=== PATIENT | female | born 1950 | race Caucasian/White ===

== ENCOUNTER 2017-01-30 05:26 | Inpatient (IN) | payer MEDICARE, OTHER ==
[2017-01-30] VITALS (12 sets, daily range): BP systolic 144–181; BP diastolic 82–98; PULSE 65–93; RESP 10–19; O2SAT 92–100
[~2017-01-30] VITALS: Ht 157.5 cm; Wt 84.4 kg
[~2017-01-30 05:26] MED LIST: CALC1TAB4 PO; FLUO40CA PO; LEVO88CA2 PO; LOVA40TA PO; Lactated Ringer's 1,000 ML IV ONE; MELO-259 PO; MULT-1018 PO; TEMA30CA4 PO; TRAM50TA2 PO; TRIA1TAB5 PO
[2017-01-30] MEDS ORDERED: Vancomycin Inj 1,000 MG in IV Premix 1 EACH IV ONE (06:00)
[2017-01-30] MEDS ORDERED: CeFAZolin Inj 2 GM in IV Premix 1 EACH IV ONE (06:00)
--- NOTE | 2017-01-30 07:03 | PCM.HPANE ---
Patient Data Surgeon Admitting Provider: Attending Provider:Len Phillips DO Primary Care Physician:Joseline Hercules PA-C Other Provider:Thuy Gabriel Anesthesia Reason for Visit Left Hip Degenerative Joint Disease LEFT HIP DEGENERATIVE JOINT DISEASE Ht/WT & BMI Height (Feet): 5 Height (Inches): 2.00 Weight (Kilograms): 84.368 Body Mass Index 34.00 Allergies Coded Allergies: No Known Allergies (Unverified , 01/26/17) Past Anesthesia History Anesthesia History: Positive for:: Anesthesia Reactions (PONV), Denies:: Malignant Hyperthermia Diabetes History Hx Diabetes?: No MRSA MRSA: No Medications Blood Thinner: Aspirin Hypertension Medication: Yes (TRIAMTERENE/HCTZ) Home Meds Incl Beta Manoj: No Reported Medications Tramadol 50 Mg [id number] Mg PO TID PRN For Pain Ref 0 01/26/17 Levothyroxine (Tirosint)88 Mcg Bxawxam78 Mcg PO DAILY 01/26/17 Multivitamin (Multi Vitamin Daily)1 Each Tablet1 Each PO DAILY 30 Days Ref 0 01/26/17 Triamterene/HCTZ 75-50 mg 1 Each Tablet0.5 Tablet PO DAILY Ref 0 01/26/17 Fluoxetine 40 Mg Jepstig31 Mg PO DAILY Ref 0 01/26/17 Ca/D3/Mag#11/Zinc/Performance Improvement Analyst/Raúl/Bor (Caltrate 600+D Plus Tablet)1 Each Tablet1 Each PO DAILY 01/26/17 Discontinued Reported Medications Temazepam (Restoril)30 Mg Dhmvzrn47 Mg PO HS PRN For Insomnia 30 Days Ref 0 01/26/17 Meloxicam 7.5 Mg Tablet0.5 Tab PO BID 30 Days Ref 0 01/26/17 Lovastatin 40 Mg Gnedik86 Mg PO HS #30 TABLET Ref 0 01/26/17 Triamterene/HCTZ-Expunged Drug, Do Not Renew! (Maxzide 75/50-Expunged Drug, Do Not Renew!)1 Tab Tablet0.5 Tab PO DAILY 11/14/12 Aspirin-Expunged Drug, Do Not Renew! 81 Mg Tab81 Mg PO DAILY 11/14/12 Lovastatin-Expunged Drug, Do Not Renew! 40 Mg Lqkiaw71 Mg PO DAILY 11/14/12 Losartan-Expunged Drug, Do Not Renew! 50 Mg Pshznx64 Mg PO DAILY #30 TAB 11/14/12 History History of ENT Problems?: Yes HEENT History: Denies:: Abnormal Airway Cataracts Difficult Intubation Dysphagia Glaucoma Hearing Problem Sinus Problem TMJ Denture Type: None Teeth Condition: Within Normal Limits Other HEENT Pertinent History: S/P TONSILLECTOMY Hx of Heart Problems?: Yes Cardiovascular History: Positive for:: Hypertension (HYPERLIPIDEMIA) Denies:: Heart Murmur Hx of Respiratory Problem?: No Respiratory History: Denies:: Use of C-PAP Machine Hx Neurologic Problems?: Yes Hx of GI Problems?: No Hx of Problems?: No Female Hx: Denies:: Currently Skin History: Positive for:: History Skin Disorders? (ONYCHOMYCOSIS S/P BASAL CELL CA) Denies:: Pressure Ulcers Hx Musculoskeletal Problems?: Yes Musculoskeletal History: Positive for:: Degenerative Joint Joint Replacement (S/P RT TOY, LT TKA) Osteoarthritis (LT HIP=CURRENT PROBLEM) Hx of Psycho/Social Problems?: Yes Psycho Social History: Positive for:: Anxiety (MILD) Hx Depression (MILD) Hx Surgeries?: Yes (TONSILLECTOMY,RT TOY, LT TKA,THYROID ABLATION) Hx Any Other Health Problems?: Yes Other History: Positive for:: Cancer (THYROID) Thyroid Disease (S/P THYROID ABLATION FOR CA) Denies:: Endocrine Disease Hospitalization History Blood Transfusions: Denies:: Blood Transfusions Hx Diabetes: No Hx Alcohol Use: NoHx Substance Use: NoHave You Smoked inLast 12 mo: No Stop/Bang S-Snoring: Do You Snore Loudly: No T-Tired: feel tired, fatigued: Yes O-Obsered: Observed not breath: No P-Blood Pressure: treated: Yes B- Body Mass Index > 35 kg/m2: No A- Age over 50: Yes N- Neck Large Circumference: No G- Gender Male: No JENNIE Total Score: 3 Risk Assessment Category Category 1A: Patient has history of documented sleep apnea, and HAS NOT received any narcotic, sedative or anesthesia administration during this stay. Category 1B: Patient has history of documented sleep apnea, and HAS received any narcotic , sedative or anesthesia administration during this stay Category 2: Patient has SUSPECTED Obstructive Sleep Apnea, and HAS received any narcotic , sedative or anesthesia administration during this stay. Category 3: Patient has SUSPECTED Obstructive Sleep Apnea and HAS NOT received narcotic, sedative or anesthesia administration during this stay. Category 4: Outpatient in Procedural Areas with known sleep apnea or who screen positive for High Risk via the STOP/BANG questionnaire. Exam Exam Vital Signs Vital Signs Date Time Temp Pulse Resp B/P Pulse Ox O2 Delivery O2 Flow Rate FiO2 01/30/17 06:15 36.4 65 18 149/89 98 Room Air General Appearance: Alert, Oriented X3, Cooperative HEENT/AIRWAY: MP 2, Neck Movement (from), Mouth Opening (wnl) Lungs: Clear to Auscultation Heart: Exam Unremarkable Meds/Labs/Diagnostics Admission Meds Current Medications Vancomycin/0.9 % Sod Chloride 1000 mg/Premix 200 ml @ 133.333 mls/hr PREOP ONCE IV Last administered on 01/30/17 06:20; Start 01/30/17 at 06:00; Stop 08/06 at 07:29 Lactated Ringer's (Lr) 1,000 ml @ 120 mls/hr Q8H20M ONCE IV Last administered on 01/30/17 05:40; Start 01/30/17 at 05:00; Stop 01/30/17 at 13:19 Plan Impression Patient chart reviewed, patient interviewed and anesthestic plan with risks, benefits, and alternatives discussed, and informed consent obtained. ASA Physical Status: ASA2 Mod Systemic Disease Anesthetic Plan: GA Bene/Risks/Altern/Consents: Yes HP Complete Prior to Induction: Yes Other patient prefers GA over Matthew Shoemaker MD Jan 30, 2017 07:03
[2017-01-30] MEDS ORDERED: Acetaminophen IV 1,000 MG in IV Premix 1 EACH IV ONE ×2 (07:15→11:35)
[2017-01-30] MEDS ORDERED: Bupivacaine Liposome 1.3% 20 mL Inj ONE (07:25)
[2017-01-30] MEDS ORDERED: Lactated Ringer's 500 ML IV PRN (08:19)
[2017-01-30] MEDS ORDERED: Lactated Ringer's 1,000 ML IV SCH (08:19)
[2017-01-30] MEDS ORDERED: hydrALAZINE 20 mg/mL Inj IVPUSH PRN (08:20)
[2017-01-30] MEDS ORDERED: Phenylephrine 10,000 mCg/mL Inj IVPUSH PRN (08:20)
[2017-01-30] MEDS ORDERED: Ondansetron 2 mg/mL 2 mL Inj IVPUSH PRN ×2 (08:20→11:35)
[2017-01-30] MEDS ORDERED: Dexamethasone 4 mg/mL Inj IVPUSH PRN (08:20)
[2017-01-30] MEDS ORDERED: fentaNYL-PF 50 mCg/mL 2 mL Inj IVPUSH PRN (08:20)
[2017-01-30] MEDS ORDERED: Atropine 0.4 mg/mL Inj IVPUSH PRN (08:20)
[2017-01-30] MEDS ORDERED: Labetalol 5 mg/mL 4 mL Inj IV PRN (08:20)
[2017-01-30] MEDS ORDERED: EPHEDrine Sulfate 50 mg/mL Inj IVPUSH PRN (08:20)
[2017-01-30] MEDS ORDERED: HYDROmorphone 1 mg/mL Inj IVPUSH PRN (08:20)
[2017-01-30] MEDS ORDERED: Bupivacaine Liposome 1.3% 20 mL Inj INFILTRATE ONE (08:49)
[2017-01-30] MEDS ORDERED: Bupivacaine-MPF 0.5% W/EPI 30 mL Inj INFILTRATE ONE (08:50)
[2017-01-30] MEDS ORDERED: 0.9% Sodium Chloride 10 mL Inj INFILTRATE ONE (08:50)
[2017-01-30] MEDS ORDERED: Lactated Ringer's 1,000 ML IV ONE (10:20)
[2017-01-30] MEDS ORDERED: Magnesium Hydroxide 10 mL Oral Concentration PO PRN (11:35)
[2017-01-30] MEDS ORDERED: Polyethylene Glycol (PEG) 17 Gm Powder PO PRN (11:35)
[2017-01-30] MEDS ORDERED: HYDROmorphone 2 mg/mL Inj IVPUSH PRN (11:35)
[2017-01-30] MEDS ORDERED: diphenhydrAMINE 25 mg Capsule PO PRN (11:35)
--- NOTE | 2017-01-30 11:54 | PCM.ANEP1 ---
Post Anesthesia PACU Phase 1 Assessment Vital Signs Vital Signs Date Time Temp Pulse Resp B/P Pulse Ox O2 Delivery O2 Flow Rate FiO2 01/30/17 11:50 65 10 171/94 99 Nasal Cannula 2 01/30/17 11:45 69 11 152/88 99 Nasal Cannula 2 01/30/17 11:40 70 11 158/87 99 Nasal Cannula 2 01/30/17 11:35 71 11 152/89 98 Nasal Cannula 2 01/30/17 11:30 36.0 75 12 169/98 92 Room Air 01/30/17 11:28 79 12 181/85 93 Room Air 01/30/17 06:15 36.4 65 18 149/89 98 Room Air Anesthetic Administered: GA Level of Alertness: Awake, talking KENNY's with Equal Strength: Yes Pain: No Nausea or Vomiting: No CV Function & Hydration Stable: No Airway Device: Oxygen Delivery: Room Air Lungs: Normal Air Movement PACU Phase 2 Assessment Complications: No Follow up Care: No Patient Instructions Provided: N/A Matthew Dowling MD Jan 30, 2017 11:54
[2017-01-30 12:01] LABS: APPEARANCE,URINE HAZY (CLEAR,HAZY); COLOR,URINE STRAW (YELLOW); OCCULT BLOOD,URINE TRACE (NEGATIVE); UROBILINOGEN,URINE NORMAL (NORMAL)
--- NOTE | 2017-01-30 12:32 | DRSVH ---
PROCEDURE: X-RAY PELVIS W/LAT HIP (LT) ([id number]) INDICATIONS: post op TECHNIQUE: AP pelvis with lateral view(s) of the left hip(s). COMPARISON: [facility], CR, XR SURG FLUORO C-ARM > 1 HR, 01/30/2017, 8:16. [facility], CR, XR SURG FLOURO EA 30 MIN, 01/30/2017, 10:52. FINDINGS: Bones: No fractures or dislocations. Postsurgical changes related to left hip arthroplasty. There i s also a right hip arthroplasty. Pelvic ring appears intact. No suspicious bony lesions. Soft tissues: The visualized bowel gas pattern is normal. No suspicious soft tissue calcifications. IMPRESSION: Expected postoperative alignment. Dictated by: Alonzo Thompson M.D. on 01/30/2017 at 12:28 Approved by: Alonzo Thompson M.D. on 01/30/2017 at 12:30
--- NOTE | 2017-01-30 12:45 | NUR ---
Arrived on Unit Patient arrived on floor from PACU in stable condition. Patient transferred down in bed. Dressing CDI. 3L NS on dressing for pressure and two pillows in between legs per order. Crane patent and flowing to gravity. A&Ox3. VSS. 2L NC. Denies pain and nausea at this time. Patient orientated to bed, call light and visiting hours. at bedside. Call light and tray table within reach. Will continue to monitor patient hourly.
[2017-01-30] MEDS ORDERED: HYDROmorphone 2 mg/mL Inj ONE (12:53)
[2017-01-30] MEDS ORDERED: Neostigmine 1 mg/mL 10 mL Inj ONE (12:53)
[2017-01-30] MEDS ORDERED: Propofol 10,000 mCg/mL 20 mL Inj ONE (12:53)
[2017-01-30] MEDS ORDERED: Rocuronium 10 mg/mL 5 mL Inj ONE (12:53)
[2017-01-30] MEDS ORDERED: Glycopyrrolate 0.2 MG/ML 1mL Inj ONE (12:53)
[2017-01-30] MEDS ORDERED: fentaNYL-PF 50 mCg/mL 2 mL Inj ONE (12:53)
[2017-01-30] MEDS ORDERED: Ondansetron 2 mg/mL 2 mL Inj ONE (12:53)
[2017-01-30] MEDS: 0.9% Sodium Chloride 1,000 ML IV SCH ×2 (12:59→21:32)
[2017-01-30] MEDS: hydrOXYzine Pamoate 25 mg Capsule PO PRN ×2 (13:00→18:56)
--- NOTE | 2017-01-30 15:45 | NUR ---
Evaluation completed. Please go to "Notes" then click on "Assessments and Notes" (bottom left corner of screen). Then select appropriate discipline tab on top of screen.
[2017-01-30] MEDS: Sodium Chloride LOK Flush 10 mL Syringe IV SCH (16:30)
[2017-01-30] MEDS: Senna-Docusate 8.6-50 mg Tablet PO SCH (21:15)
--- NOTE | 2017-01-30 23:41 | OP ---
[address] [address] OPERATIVE REPORT PATIENT: MILAD GRULLON : 1950 MR#: [id number] ADMIT: 01/30/2017 JOB ID: [id number] DATE OF SURGERY: 01/30/2017 PREOPERATIVE DIAGNOSIS(ES): Left hip degenerative joint disease. POSTOPERATIVE DIAGNOSIS(ES): Left hip degenerative joint disease. PROCEDURE: Left direct anterior total hip arthroplasty. SURGEON: Len Phillips DO. MARINE SCIENTIST: 1. Martín Connell MD. 2. Edwardo Grace PA-C. INDICATIONS: The patient is a 66-year-old female with left hip severe degenerative arthritis who has failed conservative measures and wished to proceed with a left direct anterior total hip arthroplasty. We discussed risks, benefits and possible complications of surgery including, but not limited to, injury to nerves and vessels, infection, bleeding, incomplete relief of symptoms, stiffness, dislocation, deep venous thrombosis. The patient had good understanding. All questions were answered and she wished to proceed. A carpenter assistant was required for the successful completion of this procedure. PROCEDURE IN DETAIL: The patient was brought to the operating room. She was given a preoperative antibiotic and general anesthetic. Placed onto the [place] table. The left hip was sterilely prepped and draped. An incision was made about 2 cm distal and lateral to the ASIS overlying the tensor fascia minerva. Dissection was carefully carried through to the subcutaneous tissue. Electrocautery was used for hemostasis. The fascia overlying the TFL was incised and the blunt retraction was carried into the interval between the TFL and the sartorius. The circumflex vessels were then located and ligated with suture ligatures and then divided. Next, the fat overlying the anterior capsule was cleaned and a small amount of the rectus was released off of the anterior capsule in order to gain exposure. Next, an H type capsular incision was made to gain access to the hip. Suture was placed to hold the anterior limb of capsule and protect it for future closure. The hip joint was then entered. Retractors were placed on either side of the femoral neck. The neck cut was then made using fluoroscopy as a guide about a fingerbreadth above the level of the lesser and the femoral head was then removed using a corkscrew. Next, the acetabulum was addressed and anterior and posterior acetabular retractors were placed, and the pulvinar and labrum were removed. The acetabulum was then reamed sequentially up to a 47. This was done using fluoroscopy to ensure the appropriate abduction and anteversion, and a 48 De[place] three-hole cup was chosen. This was impacted into position, again taking care to ensure the appropriate abduction and anteversion, and further secured with a single superior dome screw which had excellent fixation. We then moved on to the femur using the external rotation and dropping the foot down to the floor and then adducting slightly. Retractors were placed and the soft tissue was cleared to the base of the greater trochanter. The box osteotome was used and then the femur was broached sequentially up to a size 2, which had excellent fit and fill, and a calcar planer was used to smooth the top of the femur. We then did trials with the standard length neck and elected to go up to the +4 lateralized liner and the standard head which seemed to fit quite nicely. The +4 liner was then impacted into position, as was the Tri-Lock size 2 stem with the +1.5 head. This was located, however, it had excess shuck and seemed to dislocate anteriorly at about 80 degrees of external rotation. Therefore, I felt that we needed to go up a size on the head, even though this would lengthen her slightly, and the head was then removed. However, the femoral component came with the head as this was explanted. These were on the back table and the femoral component was again washed and cleared of soft tissue and reimplanted to the same level. However, there was concern about a possible damage to the trunnion; and therefore, I elected to use a 32 +5 metal head and the hip was then located. Had excellent range of motion and great stability with appropriate offset, and final x-ray confirmation was made. The wound was then closed with interrupted #1 Surgilon to repair the capsule. The fascia overlying the TFL was then repaired with a running 0-Vicryl. The subcu was closed with 2-0 and 3-0 Vicryl. Also, a mixture of Marcaine and Exparel with saline was added as an adjunct local anesthetic. The skin was closed with running subcuticular Monocryl and Steri-Strips and they were applied as well as a silver dressing. The patient tolerated the procedure well. Blood loss was 450 cc. POSTOPERATIVE PROTOCOL: Will have the patient weightbear to tolerance. Use a walker or cane for ambulation. I would like her to maintain pressure with a saline bag over the incision for the first 24 hours and plan to use Lovenox for DVT prophylaxis for 21 days postoperatively. She was given a prescription for [place] 7.5/325 for pain.
[2017-01-31 00:10] VITALS: BP 112/71; PULSE 98; RESP 17; O2SAT 93
[2017-01-31] MEDS ORDERED: CeFAZolin Inj 2 GM in IV Premix 1 EACH IV ONE (00:30)
[2017-01-31] MEDS: Sodium Chloride LOK Flush 10 mL Syringe IV SCH ×4 (00:30→23:42)
[2017-01-31] MEDS: HYDROcodone-APAP 7.5-325 mg Tablet PO PRN ×4 (00:53→18:39)
[2017-01-31 04:45] VITALS: BP 113/69; PULSE 87; RESP 17; O2SAT 95
--- NOTE | 2017-01-31 05:44 | NUR ---
Post Op R hip anterior incision CDI, 3L NS bag used to provide pressure, ice applied periodically. Pt has fever of 38.3, notifeid. Given APAP twice, and 1x [place] for pain control this shift and temp returns to normal at 0500. Good PO intake, IV changed to NS TKO for ABX. Crane patent and draining, to be removed at 0600 post op day 1. Care continues
[2017-01-31 06:40] LABS: BASOPHILS % (AUTO) 0.3 % (0-3); EOSINOPHILS % (AUTO) 0.3 % (0-5); MONOCYTES % (AUTO) 9.4 % (4-12); Mean Corpuscular Hemoglobin 31.1 pg (27.0-35.0); Mean Corpuscular Volume 94.8 fL (81-100); NEUTROPHILS % (AUTO) 74.3 % (40-74); Platelet Count 166 bil/L (150-400)
[2017-01-31] MEDS: 0.9% Sodium Chloride 1,000 ML IV SCH ×2 (07:32→17:32)
[2017-01-31] MEDS: Senna-Docusate 8.6-50 mg Tablet PO SCH ×2 (08:38→21:02)
--- NOTE | 2017-01-31 09:10 | NUR ---
Evaluation completed. Please go to "Notes" then click on "Assessments and Notes" (bottom left corner of screen). Then select appropriate discipline tab on top of screen.
[2017-01-31 11:29] VITALS: BP 117/56; PULSE 85; RESP 18; O2SAT 94
--- NOTE | 2017-01-31 16:11 | PCM.PNORTH ---
Subjective Date of Service: Jan 31, 2017 Visit Information: Reason for Visit Left Hip Degenerative Joint Disease Surgery/Surgery Date L ANTERIOR TOY 01/30/17 Post-Op Day # Date of Admission: Jan 30, 2017 at 11:57 Hospital Day # Subjective Status post day #1 left total hip arthroplasty, direct anterior approach. Patient states she is doing well, states she does have some achiness and pain but this is not too bad. States her pain is well-controlled and she feels pretty good. Was willing to work with physical therapy has only gotten up once as of this morning to use the restroom. Postop General: No Complaints, No Shortness of Breath, No Chest Pain Objective Exam Objective Patient is alert and oriented 3. Answering questions appropriately. Patient is sitting up in the bed and not in acute distress today. Dressing is clean dry and intact. Calf is soft and nontender. Sensation and pulses intact, patient able to wiggle toes. Vital Signs and I/O Vital Sign - Last Date Time Temp Pulse Resp B/P Pulse Ox O2 Delivery O2 Flow Rate FiO2 01/31/17 13:52 Room Air 01/31/17 11:29 36.8 85 18 117/56 94 01/30/17 12:52 2.00 Intake and Output 01/30/17 01/30/17 01/31/17 Cumulative From/Thru 15:00 23:00 07:00 01/26/17 09:46 - 01/31/17 06:16 Intake Total 1770 ml 730 ml 800 ml 3500 ml Output Total 680 ml 200 ml 800 ml 1680 ml Balance 1090 ml 530 ml 0 ml 1820 ml Intake Oral 300 ml 800 ml 1100 ml IV Total 1770 ml 430 ml 2400 ml Output Urine Total 230 ml 200 ml 800 ml 1230 ml Estimated Blood Loss 450 ml 450 ml # Bowel Movements 0 0 Lab & Micro Results Laboratory Tests Test 01/31/17 06:00 White Blood Count 6.9th/mm3 (3.8-10.1) Red Blood Count 3.44mil/mm3 (3.90-5.20) Hemoglobin 10.7g/dL (12.0-15.6) Hematocrit 32.6% (35.0-46.0) Mean Corpuscular Volume 94.8fL (81-100) Mean Corpuscular Hemoglobin 31.1pg (27.0-35.0) Mean Corpuscular Hemoglobin Concent 32.8% (32.0-37.0) Red Cell Distribution Width 13.0% (12.3-15.4) Platelet Count 166bil/L (150-400) Neutrophils (%) (Auto) 74.3% (40-74) Lymphocytes (%) (Auto) 15.6% (14-46) Monocytes (%) (Auto) 9.4% (4-12) Eosinophils (%) (Auto) 0.3% (0-5) Basophils (%) (Auto) 0.3% (0-3) Sodium Level 132mEq/L (134-144) Potassium Level 3.0mEq/L (3.5-5.2) Chloride Level 95mEq/L (97-108) Carbon Dioxide Level 28mmol/L (18-29) Blood Urea Nitrogen 9mg/dL (8-27) Creatinine 0.59mg/dL (0.57-1.00) Estimat Glomerular Filtration Rate 145mL/min (>59) Glucose Level 136mg/dL (60-99) Calcium Level 7.7mg/dL (8.5-10.1) Result Diagram: 01/31/17 0600 01/31/17 0600 Assessment & Plan Impression Status post day #1 left total hip arthroplasty, direct anterior approach. Patient doing well. Problems: Plan Patient will continue physical therapy. Weightbearing as tolerated with front wheeled walker. Only precaution is no external rotation past 90. Patient will utilize Lovenox 40 mg subcutaneous daily 21 days, then aspirin 325 mg tablets 1 by mouth twice a day for 3 more weeks for DVT prophylaxis. We will plan to change dressing tomorrow. Patient will utilize [place] 7.5/325 mg tablets while in the hospital for pain control. We will check labs tomorrow for postoperative anemia, hemoglobin today 10.7, hematocrit 32.6, acceptable. Anticipate the patient will remain in the hospital for 1-2 more days and will be discharged to home, likely tomorrow. Edwardo Grace PA-C Jan 31, 2017 16:11
--- NOTE | 2017-01-31 19:40 | NUR ---
activity/pain Pt up SBA, walked in [place] twice with PT, sat in chair for a couple hours this afternoon, pain well controlled with PO Vicodin, humphries removed this am, voiding without difficulty
[2017-01-31 20:30] VITALS: BP 106/60; PULSE 86; RESP 17; O2SAT 92
--- NOTE | 2017-02-01 02:03 | NUR ---
Activity On initial assessment, patient stated no pain while in bed, 2/10 on pain scale when ambulating to BR. Patient refused pain medication. Patient ambulating well to BR using FWW. VSS. Patient encouraged to call for pain medication during shift . Call light within reach. Care continues.
[2017-02-01] MEDS: 0.9% Sodium Chloride 1,000 ML IV SCH (03:32)
[2017-02-01 04:15] VITALS: BP 115/72; PULSE 85; RESP 17; O2SAT 94
[2017-02-01 06:41] LABS: BASOPHILS % (AUTO) 0.3 % (0-3); EOSINOPHILS % (AUTO) 0.3 % (0-5); MONOCYTES % (AUTO) 10.6 % (4-12); Mean Corpuscular Hemoglobin 31.4 pg (27.0-35.0); Mean Corpuscular Volume 94.8 fL (81-100); NEUTROPHILS % (AUTO) 76.6 % (40-74); Platelet Count 159 bil/L (150-400)
--- NOTE | 2017-02-01 08:22 | PCM.PNORTH ---
Subjective Date of Service: Feb 01, 2017 Visit Information: Reason for Visit Left Hip Degenerative Joint Disease Surgery/Surgery Date L ANTERIOR TOY 01/30/17 Post-Op Day # 2 Date of Admission: Jan 30, 2017 at 11:57 Hospital Day # Subjective Patient reports she is not having much pain. She is taking tramadol and Tylenol. She walks well with physical therapy yesterday she had little difficulty with stairs. She complains of a blister behind her knee which bothers her more than her surgical wound. She feels that she is ready for discharge home today. Postop General: No Complaints, No Shortness of Breath, No Chest Pain Pain Management: PO Objective Exam Objective Patient is seen sitting up in a chair. She is alert, oriented and cooperative with exam. Patient is seen with Dr. Phillips. Vital Signs and I/O Vital Sign - Last Date Time Temp Pulse Resp B/P Pulse Ox O2 Delivery O2 Flow Rate FiO2 02/01/17 04:15 36.9 85 17 115/72 94 Room Air 01/30/17 12:52 2.00 Intake and Output 01/31/17 01/31/17 02/01/17 Cumulative From/Thru 15:00 23:00 07:00 01/26/17 09:46 - 02/01/17 05:51 Intake Total 1630 ml 800 ml 5930 ml Output Total 2550 ml 1200 ml 5430 ml Balance -920 ml -400 ml 500 ml Intake Oral 1630 ml 800 ml 3530 ml IV Total 2400 ml Output Urine Total 2550 ml 1200 ml 4980 ml Estimated Blood Loss 450 ml # Bowel Movements 0 0 Lab & Micro Results Laboratory Tests Test 02/01/17 06:10 White Blood Count 7.6th/mm3 (3.8-10.1) Red Blood Count 3.28mil/mm3 (3.90-5.20) Hemoglobin 10.3g/dL (12.0-15.6) Hematocrit 31.1% (35.0-46.0) Mean Corpuscular Volume 94.8fL (81-100) Mean Corpuscular Hemoglobin 31.4pg (27.0-35.0) Mean Corpuscular Hemoglobin Concent 33.1% (32.0-37.0) Red Cell Distribution Width 13.0% (12.3-15.4) Platelet Count 159bil/L (150-400) Neutrophils (%) (Auto) 76.6% (40-74) Lymphocytes (%) (Auto) 11.9% (14-46) Monocytes (%) (Auto) 10.6% (4-12) Eosinophils (%) (Auto) 0.3% (0-5) Basophils (%) (Auto) 0.3% (0-3) Sodium Level 131mEq/L (134-144) Potassium Level 2.9mEq/L (3.5-5.2) Chloride Level 92mEq/L (97-108) Carbon Dioxide Level 29mmol/L (18-29) Blood Urea Nitrogen 8mg/dL (8-27) Creatinine 0.54mg/dL (0.57-1.00) Estimat Glomerular Filtration Rate 161mL/min (>59) Glucose Level 130mg/dL (60-99) Calcium Level 7.8mg/dL (8.5-10.1) Result Diagram: 02/01/1760902/01/17 0610 General Appearance: No Acute Distress Extremities: Distal Pulses Palpable, No Compartment Syndrom Noted, Thigh & Calf Soft/Nontender Postop Sensory Motor: Distal Motor Intact, NVI Distally SURGICAL WOUND : Wound Location/Description Anterior left hip: Surgical dressing is removed. There is no erythema or drainage present. Steri-Strips are intact. The wound is clean and dry. There are multiple linear unroofed blisters around the perimeter of the dressing, lateral to the surgical wound as well as a small linear unroofed blister in the popliteal fossa behind the knee Activity: Activity per PT Catheters: None Assessment & Plan Impression POD #2 Status post left direct anterior total hip arthroplasty Hypokalemia Problems: Plan Weightbearing: Weightbearing as tolerated with front wheeled walker DVT prophylaxis: Lovenox 40 mg subcutaneous 3 weeks followed by aspirin 325 mg twice a day 3 weeks Continue Physical therapy for transfers, progressive ambulation, therapeutic exercise Wound care: Dressing is changed today by PA. The surgical wound is dressed with Silverlon, gauze and Tegaderm. The blisters were dressed with Adaptic, gauze and Tegaderm Potassium is low today at 2.9. Patient is given once dose of K-dur 10 mEq PO. Discharge plan: Discharge home today. Discharge instructions are reviewed with the patient Follow-up plan: In 2 weeks at [facility] with TONY for wound check and at [address] Phillips with x-rays Follow up with PCP in the next 1-2 weeks regarding low potassium Pain Management: Tylenol, tramadol, hydrocodone VTE Prophylaxis: Sub-Q Enoxaparin, SCDs Resuscitation Status: CPR: Attempt Resuscitation DavisGay Alves PA-C Feb 01, 2017 08:22
--- NOTE | 2017-02-01 08:30 | PCM.DIORTH ---
Ortho Discharge Instruction Date of Service: Feb 01, 2017 Dates of Hospitalization Date of Hospital Admission Jan 30, 2017 at 11:57 Providers Admitting Physician: Len Phillips DO Primary Care Physician: Joseline Hercules PA-C Attending Physician: Len Phillips DO Diet Discharge Diet: No restrictions Activity Discharge Activity-General: Balance rest and activity, Elevate & ice extremity Left Lower Extremity: Weight Bearing as tolerated Range of motion restrictions: Avoid external rotation beyond 90 with the left leg. When changing direction, the toes and bellybutton should point in the same direction. Discharge Assist Device: Front Wheeled Walker Dressing and Incisional Care Discharge Dressing Care: Keep dressing clean, dry & intact Discharge Hygiene: May shower (on Monday. See instructions below), DO NOT soak incision under water, NO bathtub, hot tub or whirlpool Additional Instructions Discharge Instructions Increase your walking a little more each day. Avoid any heavy lifting, pushing, pulling or carrying. Wound care: Leave the current dressings in place for 3-4 days. It is okay to shower. The dressing is waterproof. To change the dressing, peel the edge of the clear plastic off. The blisters may need dressing for 1-2 weeks. Apply a thin strip of Adaptic [nonstick dressing], fold gauze, then cover with Tegaderm dressing. The surgical dressing may not need any dressing after Monday. Then it will be OK to shower with wound uncovered. Leave the steri-strips in place. We will remove them in the office at your 2 weeks appointment. Wear compression stocking on both legs for 2 weeks, and for total of 4 weeks on the left leg Follow Up Plan Follow Up Plan At [facility] in 2 weeks with TONY for wound check, and at [address] Phillips with x-ray Follow up with your PCP in the next 1-2 weeks regarding low potassium Call your provider for: Fever, Chills, Shortness of breath, Vomitting, Drainage at incision (increasing), Wound redness, Increasing pain (for no reason ) Gay Pennington PA-C Feb 01, 2017 08:29
[2017-02-01] MEDS ORDERED: Potassium Chloride 20 mEq SR Tablet PO ONE (08:41)
[2017-02-01] MEDS ORDERED: TRAM50TA2 PO (09:12)
[2017-02-01] MEDS ORDERED: ENOX40DI8 SUBQ (09:12)
[2017-02-01] MEDS ORDERED: Hydrocodone/Acetaminophen PO (09:12)
[2017-02-01] MEDS: Senna-Docusate 8.6-50 mg Tablet PO SCH (09:14)
[2017-02-01] MEDS: Sodium Chloride LOK Flush 10 mL Syringe IV SCH (09:15)
--- NOTE | 2017-02-01 09:22 | PCM.DC.ORT ---
Discharge Summary Date of Service: Feb 01, 2017 Date of Hospital Admission: Jan 30, 2017 at 11:57 Date of Surgery: Jan 30, 2017 Date of Discharge: Feb 01, 2017 Reason for Hospitalization: Left hip arthritis Procedures Performed: Left direct anterior total hip arthroplasty Hospital Course: The patient was admitted to the hospital on 01/30/2017 and underwent the above procedure. Antibiotic prophylaxis consisting of Ancef and vancomycin. The surgeon was Dr. Phillips. Patient tolerated the procedure well and was transferred to recovery room in stable condition. Patient had physical therapy to work on ambulation and transfers. Weightbearing as tolerated with walker. Pain was managed with Dilaudid, hydrocodone, Tylenol, tramadol, Vistaril, Toradol. Patient primarily use Tylenol and tramadol for pain. She preferred to minimize use of narcotics. DVT prophylaxis: Lovenox 40 mg SQ daily. Patient had hypokalemia during her hospital stay. She a dose of potassium on postop day 2. Patient progressed well with physical therapy and on POD-2 was discharged home with home health physical therapy. Patient did not have railing on her stairs at home. Physical therapy is ordered through home health to review stair walking with her in her home for 1-2 visits. Patient is homebound and the recent surgery, limited ambulation, weakness and risk of falls Follow-up: at [facility] 2 weeks postop for wound check and at [address] Phillips with x-ray. Patient is instructed to follow up with her PCP in the next week or 2 regarding the low potassium. This has been a chronic problem for her. Diagnosis at Time of Discharge Status post left direct anterior hip arthroplasty Problems: Disposition: Discharged home in stable condition with home health physical therapy Discharge Instructions: Weightbearing as tolerated with front-wheeled walker. Balance rest and activity. Increase your walking a little more each day. Avoid any heavy lifting, pushing, pulling or carrying. Wound care: Leave the current dressings in place for 3-4 days. It is okay to shower. The dressing is waterproof. To change the dressing, peel the edge of the clear plastic off. The blisters may need dressing for 1-2 weeks. Apply a thin strip of Adaptic [nonstick dressing], fold gauze, then cover with Tegaderm dressing. The surgical dressing may not need any dressing after Monday. Then it will be OK to shower with wound uncovered. Leave the steri-strips in place. We will remove them in the office at your 2 weeks appointment. Wear compression stocking on both legs for 2 weeks, and for total of 4 weeks on the left leg Avoid external rotation of the hip past 90 degrees. When turning, the toes and belly button should face the same direction. ([Hydrocodone/Acetaminophen]) 1 TABLET TABLET 1-2 TABLET PO Q4H PRN PRN For Moderate Pain Ca/D3/Mag#11/Zinc/Manager Qa/Raúl/Bor (Caltrate 600+D Plus Tablet) 1 Each Tablet 1 EACH PO DAILY Enoxaparin Sodium (Enoxaparin Sodium) 40 Mg/0.4 Ml Syringe 40 MG SUBQ Q24 Fluoxetine (Fluoxetine) 40 Mg Capsule 40 MG PO DAILY Levothyroxine (Tirosint) 88 Mcg Capsule 88 MCG PO DAILY Multivitamin (Multi Vitamin Daily) 1 Each Tablet 1 EACH PO DAILY Tramadol (Tramadol) 50 Mg Tablet 50 MG PO Q6H PRN PRN For Pain Triamterene/HCTZ 75-50 mg (Triamterene/HCTZ 75-50 mg) 1 Each Tablet 0.5 TABLET PO DAILY Gay Pennington PA-C Feb 01, 2017 09:22
[2017-02-01] MEDS: hydrOXYzine Pamoate 25 mg Capsule PO PRN (09:30)
[2017-02-01] MEDS: HYDROcodone-APAP 7.5-325 mg Tablet PO PRN (09:33)
--- NOTE | 2017-02-01 09:40 | NUR ---
Social Work: Initial Assessment / Discharge Data: Pt is a 66 y/o female admitted for left hip degenerative joint disease. Pt's PCP is Joseline Hercules PA-C, pt's insurance is Medicare with [employer] supp. EMR reviewed, readmit score not listed. PT recommending HH at this time and a FWW. CORNICE UPHOLSTERER acknowledges MD order to set up HH for PT 1-2 times once home. CORNICE UPHOLSTERER met with pt at bedside, role explained. Pt states she lives in [place] with her in a single story home with 4 stairs to enter. Pt does not use DME at this time, drives, has hx of HH in [place], no SNF hx, no LTC or VA benefits. Pt has FWW in room that she will be taking home to use at d/c. CORNICE UPHOLSTERER gave SNF/HH choice list. Pt states no preference. CORNICE UPHOLSTERER referred to rotating calendar and referred to [facility]. No answer, left voice mail for [facility] and faxed referral, requested confirmation that they can take pt before 11am this morning due to pt d/c orders being in already. CORNICE UPHOLSTERER will continue to follow. Assessment: Pt who is independent at baseline. Plan: Pt will d/c home via POV with spouse today with likely [facility] for PT 1-2 times after d/c. CORNICE UPHOLSTERER awaiting confirmation from [facility] with [facility]. CORNICE UPHOLSTERER will continue to follow. ALEKS Gaxiola Addendum: 02/01/17 at 0945 by DEBRA ROCA SS Amended: Links added. Addendum: 02/01/17 at 0959 by DEBRA CEDEÑO CORNICE UPHOLSTERER spoke with She will be at [facility] to fiber picker referral and F2F by 10:30 this morning. Referral on [facility] desk for her to fiber picker. ALEKS Gaxiola Addendum: 02/01/17 at 1206 by DEBRA CEDEÑO CORNICE UPHOLSTERER spoke with [facility] can accept pt. No further d/c planning needs. ALEKS Gaxiola
--- NOTE | 2017-02-01 11:35 | NUR ---
GREGORY Signed @ 348KB
--- NOTE | 2017-02-01 13:05 | NUR ---
Discharge Patient discharged home with family at 1300 with all belonging. [email or web address] injection teaching and home kit sent with patient. Patient demonstrated own injection yesterday with RN; patient and family able to explain technique for injection at home. Explained dressing changes and materials and detailed teach back regarding hip precautions. Medicated for transport home with Tramadol.
== END 2017-02-01 13:10 | disposition home health service (06) | DRG 470 ==
LOC: SAS 05:26 → OSC 11:57
PROVIDERS: ADMIT Orthopaedic Surgery; ATTEND Orthopaedic Surgery
PROC: 0SRB02A Replacement of Left Hip Joint with Metal on Polyethylene Synthetic Substitute, Uncemented, Open Approach (ICD-10-PCS; principal; 2017-01-30 07:30)
DX: M16.12 Unilateral primary osteoarthritis, left hip (principal); I10 Essential (primary) hypertension; Z96.641 Presence of right artificial hip joint